=== PATIENT | female | born 1995 | race Caucasian/White ===

== ENCOUNTER 2016-08-06 20:06 | Emergency (ER) | payer OTHER ==
[~2016-08-06] VITALS: Ht 154.9 cm; Wt 91.9 kg
[2016-08-06 20:22] VITALS: BP 150/91; PULSE 83; TEMP 36.8; O2SAT 99; Ht 154.9 cm; Wt 91.9 kg
--- NOTE | 2016-08-06 21:15 | EMERGENCY ROOM VISIT NOTE ---
History Report prepared by Therese: Jeannie Morel Under the Supervision of: Dr. Tre Templeton M.D. First contact with patient: 20:35 Chief Complaint: NEURO SYMPTOMS Stated Complaint: CONFUSION, R ARM NUMB History of Present Illness The patient is a 21 year old female who presents to the Emergency Room with complaints of resolved neuro symptoms that started 6-7 hours ago, around 1400- 1500. The patient states that she developed numbness in her right fingertips after she washed her hands. The numbness then radiated into her forearm. The numbness is currently concentrated in her right pinky finger with some numbness in her right ring finger. She is also experiencing "muscular" pain in her right arm. The patient is also experiencing intermittent left arm numbness, but it is not near as constant as the numbness in her right arm. She is also experiencing an intermittent mild headache, but she states that she has a history of intermittent headaches. The headache started after the numbness. The patient adds that she has experienced tingling in her fingers with headaches in the past , but it typically does not stay as long as the tingling and numbness that she has now. The patient is also experiencing back pain, but she states that is also not new for her. She denies any edema. She states that she was then driving in the car when she became lightheaded and somewhat confused. The patient developed a headache when the lightheadedness started, but it resolved on its own after about 15 minutes. At that time she also felt very tired, nauseous, and felt like she might experience syncope. Her significant other adds that she was cold and shivering at the time of the confusion. She did not experience LOC, chest pain, shortness of breath, or diaphoresis. She states that she felt weird and does not really remember much from the car ride, but upon arrival to the ED the patient felt well. The patient's boyfriend noticed some slower speech when the patient was disoriented. The patient also felt like her right arm was "not attached to her body" when she was disoriented. The patient denies any problems with her right leg. She also denies any recent head trauma, as well as any recent trauma to her right arm and any recent overactivity with her right arm. 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 She is not on any blood thinners or any daily medications. Source of History: patient, spouse/significant other Onset: 6-7 hours ago, around [id number] Position: other (global) Quality: other (neuro symptoms) Timing: resolved Associated Symptoms: + back pain, + headache (intermittent), + nausea, + numbness (right pinky and ring finger radiating into forearm, intermittent left arm), No LOC, No SOB, No chest pain, No diaphoresis Note: "muscular" pain in right arm, lightheadedness, near-syncope, confusion, some slurred speech, slower speech Review of Systems See HPI for pertinent positives & negatives. A total of 10 systems reviewed and were otherwise negative. Past Medical & Surgical Medical Problems: (1) Migraine Family History No pertinent family history Social History Smoking Status: Never Smoker Marital Status: in relationship Current/Historical Medications Unable to Obtain Active Prescriptions or Reported Meds Allergies Coded Allergies: Latex (Verified Allergy, Mild, RASH, 08/06/16) Physical Exam Vital Signs Date Time Temp Pulse Resp B/P Pulse Ox O2 Delivery O2 Flow Rate FiO2 08/06/16 20:22 36.8 83 20 150/91 99 Room Air Physical Exam GENERAL: Patient is in no acute distress. HEENT: No acute trauma, normocephalic atraumatic, mucous membranes moist, no nasal congestion, no scleral icterus. NECK: No stridor, no adenopathy, no meningismus, trachea is midline. LUNGS: Clear to auscultation bilaterally, no wheeze, no rhonchi, breath sounds equal. HEART: Without murmurs gallops or rubs, regular rate and rhythm. ABDOMEN: Soft, nontender, bowel sounds positive, no hernias, no peritonitis. EXTREMITIES: Right upper extremity has a strong radial pulse, there is no edema , radial, ulnar, and median nerves are strong and intact, compression about the right elbow especially over the lateral aspect with flexion worsens her symptoms and causes some pain. NEUROLOGIC: Oriented x 3, awake, alert, no pronator drift or cerebellar deficits , no speech slur, no facial droop, no right upper extremity motor deficits. SKIN: No rash, no jaundice, no diaphoresis. Medical Decision & Procedures ED Course 2035: The patient was evaluated in room C11. A complete history and physical exam was performed. 2104: Discussed results and discharge instructions: she verbalized understanding and agreement. The patient is ready for discharge. Medical Decision Differential diagnoses considered include nerve impingement, near syncope, dehydration, vasovagal syncope, stroke, MS, DVT. The patient presents with some right arm numbness primarily in the area of the ulnar nerve. On exam, her symptoms worsen with compression of the elbow and flexion of the elbow. There was no evidence for edema of the right arm that would suggest a DVT. There was no evidence for neurovascular compromise. By exam, there were no focal neurologic deficits, no pronator drift or cerebellar dysfunction. Patient was not toxic or febrile. She had experienced a headache earlier in the day but now felt well, her symptoms of feeling confused and feeling like she was going to pass out had resolved while in the emergency room waiting area. I had a long discussion with the patient and her significant other. I did offer testing including lab testing, even an MRI or right upper extremity ultrasound. The patient though was basically now fairly asymptomatic and did not want to pursue any testing. She felt stable with discharge home, she felt that maybe she was just dehydrated or had not eaten enough today. The patient is being discharged with strict instructions to return here for any return of symptoms. Hydration, rest, proper food intake were encouraged. She will try some Motrin and ice for what seems like right arm ulnar nerve impingement. Patient was happy with this plan of care. Impression Primary Impression: Near syncope Additional Impression: Right arm numbness Scribe Attestation The scribe's documentation has been prepared under my direction and personally reviewed by me in its entirety. I confirm that the note above accurately reflects all work, treatment, procedures, and medical decision making performed by me. Departure Information Dispostion Home / Self-Care Prescriptions Unable to Obtain Active Prescriptions or Reported Meds Forms HOME CARE DOCUMENTATION FORM, IMPORTANT VISIT INFORMATION, WORK / SCHOOL INSTRUCTIONS Patient Instructions My [facility] Additional Instructions watch for fever continue your care as before see peds Monday for a recheck return if worsening exam today was all ok Problem Qualifiers
== END 2016-08-06 21:15 | disposition home or self-care (01) ==
LOC: C.EDB 20:08 → C.EDC 21:15
DX: R55 Syncope and collapse (principal); R20.2 Paresthesia of skin; Z91.040 Latex allergy status

== ENCOUNTER 2016-08-09 17:49 | Emergency (ER) | payer OTHER ==
[~2016-08-09] VITALS: Ht 154.9 cm; Wt 92.6 kg
[2016-08-09 17:52] VITALS: TEMP 36.8; Ht 154.9 cm; Wt 92.6 kg
--- NOTE | 2016-08-09 18:18 | EMERGENCY ROOM VISIT NOTE ---
History Report prepared by Therese: Neil Kaiser Under the Supervision of: Dr. Indiana Zavala M.D. First contact with patient: 17:58 Chief Complaint: NEURO SYMPTOMS Stated Complaint: NUMBNESS/TINGLING IN BOTH ARMS/JAW, BACK PAIN Nursing Triage Summary: numbness in her arms and face states she was here a couple days ago for the same thing states her back also hurts "really bad" History of Present Illness The patient is a 21 year old female who presents to the Emergency Room with complaints of worsening numbness and tingling in bilateral arms for the past four days. The patient is additionally complaining of numbness in her left lip, and some upper right back pain. She states that she is additionally feeling hazy , sleepy, and she cannot concentrate. The patient states that she has a history of factor five, and she denies taking control, smoking, and any history of clots. She states that she had a period of confusion for ten minutes four days ago, and she denies any weakness. The patient denies any recent trips or surgeries as well. Source of History: patient Onset: four days ago Position: arm (bilateral) Quality: tingling, numbness Timing: worsening Associated Symptoms: + back pain Note: Associated symptoms: Left lip numbness Review of Systems See HPI for pertinent positives & negatives. A total of 10 systems reviewed and were otherwise negative. Past Medical & Surgical Medical Problems: (1) Factor V deficiency (2) Migraine Family History Cancer Factor V deficiency Gallbladder disease Heart disease Hypertension Seizures Social History Smoking Status: Never Smoker Marital Status: in relationship Housing Status: lives with roommate Occupation Status: employed Current/Historical Medications Unable to Obtain Active Prescriptions or Reported Meds Allergies Coded Allergies: Latex (Verified Allergy, Mild, RASH, 08/09/16) Physical Exam Vital Signs Date Time Temp Pulse Resp B/P Pulse Ox O2 Delivery O2 Flow Rate FiO2 08/09/16 22:40 80 16 139/89 100 08/09/16 22:00 81 20 132/92 98 Room Air 08/09/16 21:02 73 16 144/87 99 Room Air 08/09/16 20:07 74 137/92 08/09/16 19:33 70 08/09/16 18:47 96 127/89 99 Room Air 08/09/16 17:52 36.8 78 20 156/94 98 Room Air Physical Exam Vital signs reviewed. General: Well-appearing female, in no significant distress. HEENT: No scleral icterus, PERRLA, neck supple. Atraumatic. Cardiovascular: Regular rate and rhythm, no extra sounds. Pulmonary: Clear to auscultation bilaterally, normal work of breathing. Abdomen: Soft, nontender, nondistended, positive bowel sounds. Musculoskeletal: Atraumatic, no peripheral edema. Neurologic: Patient awake alert and oriented x 3, full strength in all 4 extremities. Cranial nerves 2 through 12 grossly intact. Skin: Warm, dry, no rash Medical Decision & Procedures ER Provider Diagnostic Interpretation: Radiology results as stated below per my review and radiologist interpretation: MRI OF THE BRAIN WITHOUT CONTRAST CLINICAL HISTORY: Numbness and tingling in extremities. Evaluate for multiple sclerosis. COMPARISON STUDY: None. TECHNIQUE: Utilizing a 1.5 Adilia magnet and dedicated coil, multiplanar, multiecho imaging of the brain was performed without IV contrast. Thin cut FLAIR imaging was performed as per the multiple sclerosis protocol. FINDINGS: There are no areas of restricted diffusion. No acute intracranial hemorrhage, midline shift or mass effect is present. Brain volume is normal. Ventricular system is normal. Basilar cisterns are patent. Flow-voids for the major intracranial vessels are present. No intracranial masses are identified on this unenhanced study. No areas of parenchymal signal abnormality are present. Calvarium is unremarkable. Orbits and sinuses are unremarkable. There is no fluid within the mastoid air cells. IMPRESSION: Normal unenhanced MRI of the brain. Electronically signed by: Rickey Fuller M.D. 08/09/2016 10:04 PM Dictated Date/Time: 08/09/2016 10:00 PM Laboratory Results 08/09/16 18:40 Red Blood Count 4.87, Mean Corpuscular Volume 84.8, Mean Corpuscular Hemoglobin 27.3, Mean Corpuscular Hemoglobin Concent 32.2, Mean Platelet Volume 9.9, Neutrophils (%) (Auto) 75.9, Lymphocytes (%) (Auto) 16.2, Monocytes (%) (Auto) 6.8, Eosinophils (%) (Auto) 0.6, Basophils (%) (Auto) 0.2, Neutrophils # (Auto) 9.48, Lymphocytes # (Auto) 2.02, Monocytes # (Auto) 0.85, Eosinophils # (Auto) 0.07, Basophils # (Auto) 0.03 08/09/16 18:40 Test 08/09/16 18:40 08/09/16 18:43 White Blood Count 12.49 K/uL (4.8-10.8) Red Blood Count 4.87 M/uL (4.2-5.4) Hemoglobin 13.3 g/dL (12.0-16.0) Hematocrit 41.3 % (37-47) Mean Corpuscular Volume 84.8 fL (80-100) Mean Corpuscular Hemoglobin 27.3 pg (25-34) Mean Corpuscular Hemoglobin Concent 32.2 g/dl (32-36) Platelet Count 375 K/uL (130-400) Mean Platelet Volume 9.9 fL (7.4-10.4) Neutrophils (%) (Auto) 75.9 % Lymphocytes (%) (Auto) 16.2 % Monocytes (%) (Auto) 6.8 % Eosinophils (%) (Auto) 0.6 % Basophils (%) (Auto) 0.2 % Neutrophils # (Auto) 9.48 K/uL (1.4-6.5) Lymphocytes # (Auto) 2.02 K/uL (1.2-3.4) Monocytes # (Auto) 0.85 K/uL (0.11-0.59) Eosinophils # (Auto) 0.07 K/uL (0-0.5) Basophils # (Auto) 0.03 K/uL (0-0.2) RDW Standard Deviation 41.2 fL (36.4-46.3) RDW Coefficient of Variation 13.5 % (11.5-14.5) Immature Granulocyte % (Auto) 0.3 % Immature Granulocyte # (Auto) 0.04 K/uL (0.00-0.02) Anion Gap 8.0 mmol/L (3-11) Est Creatinine Clear Calc Drug Dose 122.0 ml/min Estimated GFR () 131.1 Estimated GFR (Non- 113.1 BUN/Creatinine Ratio 15.0 (10-20) Calcium Level 9.0 mg/dl (8.5-10.1) Total Bilirubin 0.4 mg/dl (0.2-1) Direct Bilirubin 0.1 mg/dl (0-0.2) Aspartate Amino Transf (AST/SGOT) 14 U/L (15-37) Alanine Aminotransferase (ALT/SGPT) 27 U/L (12-78) Alkaline Phosphatase 79 U/L (45-117) Total Protein 7.9 gm/dl (6.4-8.2) Albumin 3.9 gm/dl (3.4-5.0) Bedside D-Dimer 122 ng/mlFEU (0-450) Laboratory results per my review. ECG Indication: other (neuro symptoms) Rate (beats per minute): 74 Rhythm: normal sinus Findings: no acute ischemic change, no ectopy ED Course 1809: Past medical records reviewed. The patient was evaluated in room A9. A complete history and physical examination was performed. 2234: Upon reevaluation, the patient appeared to have improvement of her symptoms. I discussed findings with her. She verbalized agreement of the treatment plan. She was discharged home. Medical Decision Differentials include: stroke, migraine headache, meningitis, encephalitis, Lyme 's disease, demyelinating process, and anxiety This pt was evaluated and appeared to be in no distress. PE is unrevealing. Pt is noted to be mildly hypertensive. Given her h/o Factor V and vague neurologic symptoms, it was felt necessary to obtain an MRI of the brain. Pt lab work reveals a mild WBC, normal DDimer. MRI is normal. Pt was advised to f /u with PCP or [facility] regarding elevated BP and recurrent symptoms. Pt will return to the ED for worsening of symptoms or any medical concerns. Impression Primary Impression: Paresthesias Additional Impression: Hypertension Scribe Attestation The scribe's documentation has been prepared under my direction and personally reviewed by me in its entirety. I confirm that the note above accurately reflects all work, treatment, procedures, and medical decision making performed by me. Departure Information Dispostion Home / Self-Care Prescriptions Unable to Obtain Active Prescriptions or Reported Meds Referrals No Doctor, Assigned (PCP) Forms HOME CARE DOCUMENTATION FORM, IMPORTANT VISIT INFORMATION, WORK / SCHOOL INSTRUCTIONS Patient Instructions My [facility] Additional Instructions Diagnosis: Hypertension, paresthesias Please follow-up with your primary care physician/[facility] services this week for reevaluation of your blood pressure and consideration of further medications. Return to the ER for worsening of symptoms or any medical concerns. Problem Qualifiers
--- NOTE | 2016-08-09 18:19 | EMERGENCY ROOM VISIT NOTE ---
History First contact with patient: 17:58 Chief Complaint: NEURO SYMPTOMS Stated Complaint: NUMBNESS/TINGLING IN BOTH ARMS/JAW, BACK PAIN History of Present Illness The patient is a 21 year old female who presents to the Emergency Room with complaints of Review of Systems See HPI for pertinent positives & negatives. A total of 10 systems reviewed and were otherwise negative. Past Medical & Surgical Medical Problems: (1) Factor V deficiency (2) Migraine Family History No pertinent family history Social History Smoking Status: Never Smoker Marital Status: in relationship Current/Historical Medications Unable to Obtain Active Prescriptions or Reported Meds Allergies Coded Allergies: Latex (Verified Allergy, Mild, RASH, 08/09/16) Physical Exam Vital Signs Date Time Temp Pulse Resp B/P Pulse Ox O2 Delivery O2 Flow Rate FiO2 08/09/16 17:52 36.8 78 20 156/94 98 Room Air Medical Decision & Procedures Laboratory Results Test 08/09/16 18:22 Departure Information Prescriptions Unable to Obtain Active Prescriptions or Reported Meds Referrals No Doctor, Assigned (PCP) [facility]
[2016-08-09 18:49] LABS: BASO % 0.2 %; BASO ABS # 0.03 K/uL (0-0.2); COMPLETE YES; EOS % 0.6 %; HEMATOCRIT 41.3 % (37-47); IG% 0.3 %; LYMPH % 16.2 %; LYMPH ABS # 2.02 K/uL (1.2-3.4); MEAN CELL VOLUME 84.8 fL (80-100); MEAN CORPUSCULAR HEMOGLOBIN 27.3 pg (25-34); MEAN CORPUSCULAR HGB CONC 32.2 g/dl (32-36); MEAN PLATELET VOLUME 9.9 fL (7.4-10.4); MONO % 6.8 %; NEUT % 75.9 %; PLATELET COUNT 375 K/uL (130-400); RED BLOOD COUNT 4.87 M/uL (4.2-5.4); WHITE BLOOD COUNT 12.49 K/uL (4.8-10.8)
[2016-08-09 19:08] LABS: CREATININE 0.75 mg/dl (0.60-1.20); POTASSIUM 3.9 mmol/L (3.5-5.1)
--- NOTE | 2016-08-09 22:06 | DIAGNOSTIC IMAGING REPORT ---
MRI OF THE BRAIN WITHOUT CONTRAST CLINICAL HISTORY: Numbness and tingling in extremities. Evaluate for multiple sclerosis. COMPARISON STUDY: None. TECHNIQUE: Utilizing a 1.5 Adilia magnet and dedicated coil, multiplanar, multiecho imaging of the brain was performed without IV contrast. Thin cut FLAIR imaging was performed as per the multiple sclerosis protocol. FINDINGS: There are no areas of restricted diffusion. No acute intracranial hemorrhage, midline shift or mass effect is present. Brain volume is normal. Ventricular system is normal. Basilar cisterns are patent. Flow-voids for the major intracranial vessels are present. No intracranial masses are identified on this unenhanced study. No areas of parenchymal signal abnormality are present. Calvarium is unremarkable. Orbits and sinuses are unremarkable. There is no fluid within the mastoid air cells. IMPRESSION: Normal unenhanced MRI of the brain. Electronically signed by: Rickey Fuller M.D. 08/09/2016 10:04 PM Dictated Date/Time: 08/09/2016 10:00 PM
[2016-08-09 22:40] VITALS: BP 139/89; PULSE 80; O2SAT 100
== END 2016-08-09 22:40 | disposition home or self-care (01) ==
LOC: C.EDB 17:51 → C.EDA 22:40
DX: R20.9 Unspecified disturbances of skin sensation (principal); I10 Essential (primary) hypertension; D68.2 Hereditary deficiency of other clotting factors; Z82.49 Family history of ischemic heart disease and other diseases of the circulatory system; Z82.0 Family history of epilepsy and other diseases of the nervous system; Z83.2 Family history of diseases of the blood and blood-forming organs and certain disorders involving the immune mechanism